=== PATIENT | male | born 1965 | race African-American/Black ===

== ENCOUNTER 2019-03-30 15:19 | Emergency (ER) | payer SELFPAY ==
--- NOTE | 2019-03-30 17:33 | RAD REPORT ---
EXAM DESCRIPTION: US - UPPER EXTREMITY VENOUS UNILATE - 03/30/2019 5:25 pm CLINICAL HISTORY: Pain;Swelling Previous IV, right sided swelling COMPARISON: <Comparisons> FINDINGS: Right upper extremity venous system was interrogated with Doppler technique. Normal flow, compressibility and augmentation was noted. There is no DVT present. IMPRESSION: No evidence of right upper extremity deep venous thrombosis.
--- NOTE | 2019-03-30 18:02 | RAD REPORT ---
EXAM DESCRIPTION: RAD - Wrist Right 3 View - 03/30/2019 5:57 pm CLINICAL HISTORY: PAIN Pain COMPARISON: <Comparisons> FINDINGS: Radiocarpal arthritic changes are present. No acute fracture or dislocation seen. Mild sof t tissue swelling is evident.
--- NOTE | 2019-03-30 18:11 | EDPHYS ---
Physician Documentation [facility] Name: Lamont Martin Age: 53 yrs Sex: Male : 1965 Arrival Date: 03/30/2019 Time: 15:24 Bed 18 Private MD: Unknown, Unknown ED Physician Yosef Gutiérrez HPI: 03/30 15:42 This 53 yrs old Black Male presents to ER via Ambulatory with complaints of Wrist Pain. rn 15:42 The patient or guardian reports pain. The complaints affect the right wrist diffusely. rn Onset: The symptoms/episode began/occurred 3 week(s) ago. Modifying factors: The symptoms are alleviated by nothing, the symptoms are aggravated by nothing. Associated signs and symptoms: Pertinent negatives: fever, numbness distally, tingling distally. The patient has not experienced similar symptoms in the past. Reports pain in right wrist that radiates to fingers, mild swelling, present for 3 weeks, no trauma, no fever, + hx of gout. Reports admitted 4 weeks ago to [facility] for syncope. Reports this pain slowly worsening since then.. Historical: - Allergies: 15:29 No Known Allergies; hj - PMHx: 15:29 Hyperlipidemia; Hypertension; Hypothyroidism; hj - PSHx: 15:29 None; hj - Immunization history:: Adult Immunizations. - Social history:: Smoking status: . - Ebola Screening: : Patient denies travel to an Ebola-affected area in the 21 days before illness onset. - Family history:: not pertinent. - Hospitalizations: : No recent hospitalization is reported. ROS: 15:42 Constitutional: Negative for fever, chills, and weight loss, Neck: Negative for injury, rn pain, and swelling, Cardiovascular: Negative for chest pain, palpitations, and edema, Respiratory: Negative for shortness of breath, cough, wheezing, and pleuritic chest pain, Abdomen/GI: Negative for abdominal pain, nausea, vomiting, diarrhea, and constipation, MS/Extremity: Negative for injury and deformity, Skin: Negative for injury, rash, and discoloration, Neuro: Negative for headache, weakness, numbness, tingling, and seizure. Exam: 15:42 Constitutional: This is a well developed, well nourished patient who is awake, alert, rn and in no acute distress. Ambulatory to room without assistance or distress Head/Face: Normocephalic, atraumatic. MS/ Extremity: Pulses equal, no cyanosis. Neurovascular intact. Painful ROM right wrist, no focal tenderness, no fluctuance, no erythema Neuro: Awake and alert, GCS 15, oriented to person, place, time, and situation. Cranial nerves II-XII grossly intact. Motor strength 5/5 in all extremities. Sensory grossly intact. Cerebellar exam normal. Normal gait. Vital Signs: 15:30 BP 180 / 92; Pulse 79; Resp 18; Temp 98.8(TE); Pulse Ox 100% on R/A; Weight 88.45 kg; hj Height 5 ft. 11 in. (180.34 cm); Pain 10/10; 17:20 BP 127 / 74; Pulse 68; Resp 17; Pulse Ox 99% on R/A; tw2 15:30 Body Mass Index 27.20 (88.45 kg, 180.34 cm) hj MDM: 15:31 Patient medically screened. rn 18:08 Differential diagnosis: tendonitis, carpal tunnel, arthritis, DVT. Data reviewed: vital rn signs, nurses notes, radiologic studies, doppler, plain films, and as a result, I will discharge patient. Counseling: I had a detailed discussion with the patient and/or guardian regarding: the historical points, exam findings, and any diagnostic results supporting the discharge/admit diagnosis, radiology results, the need for outpatient follow up, to return to the emergency department if symptoms worsen or persist or if there are any questions or concerns that arise at home. Response to treatment: the patient's symptoms have mildly improved after treatment, and as a result, I will discharge patient. Special discussion: I discussed with the patient/guardian in detail that at this point there is no indication for admission to the hospital. It is understood, however, that if the symptoms persist or worsen the patient needs to return immediately for re-evaluation. Based on the history and exam findings, there is no indication for further emergent testing or inpatient evaluation. I discussed with the patient/guardian the need to see the primary care provider for further evaluation of the symptoms. ED course: 3 week course, no acute findings on xray or doppler study, will place in cock-up wrist splint and dc with pcp f/u.. 03/30 15:42 Order name: Extremity Venous Uni Ltd rn 03/30 15:44 Order name: UPPER EXTREMITY VENOUS UNILATE; Complete Time: 17:58 EDAR 03/30 15:53 Order name: XRAY Wrist RIGHT 3 view; Complete Time: 18:09 rn 03/30 18:12 Order name: Splint - Wrist; Complete Time: 18:16 rn Administered Medications: No medications were administered Disposition: 03/30/19 18:10 Discharged to Home. Impression: Osteoarthritis, unspecified site. - Condition is Stable. - Discharge Instructions: Arthritis, Wrist Pain. - Medication Reconciliation Form, Thank You Letter, Antibiotic Education, Prescription Opioid Use, Work release form form. - Follow up: Private Physician; When: As needed; Reason: Recheck today's complaints, Re-evaluation by your physician. - Problem is an ongoing problem. - Symptoms have improved. Signatures: Dispatcher [employer] [facility] Yosef Gutiérrez MD MD rn Joaquin, Henry, RN RN hj Wise, Tara, RN RN tw2 Corrections: (The following items were deleted from the chart) 18:40 18:10 03/30/2019 18:10 Discharged to Home. Impression: Osteoarthritis, unspecified tw2 site. Condition is Stable. Forms are Work release form, Medication Reconciliation Form, Thank You Letter, Antibiotic Education, Prescription Opioid Use. Follow up: Private Physician; When: As needed; Reason: Recheck today's complaints, Re-evaluation by your physician. Problem is an ongoing problem. Symptoms have improved. rn
--- NOTE | 2019-03-30 18:11 | ER ---
Nurse's Notes [facility] Name: Lamont Martin Age: 53 yrs Sex: Male : 1965 Arrival Date: 03/30/2019 Time: 15:24 Bed 18 Private MD: Unknown, Unknown Diagnosis: Osteoarthritis, unspecified site Presentation: 03/30 15:26 Presenting complaint: Patient states: i was at the hospital and they put IV on me on my hj R hand and when i went home it started to hurt and swell; this has been going on for 3 months now;. Transition of care: patient was not received from another setting of care. Onset of symptoms was March 30, 2019. Risk Assessment: Do you want to hurt yourself or someone else? Patient reports no desire to harm self or others. Initial Sepsis Screen: Does the patient meet any 2 criteria? No. Patient's initial sepsis screen is negative. Does the patient have a suspected source of infection? No. Patient's initial sepsis screen is negative. Care prior to arrival: None. 15:26 Method Of Arrival: Ambulatory 15:26 Acuity: GAYATHRI 4 hj Historical: - Allergies: 15:29 No Known Allergies; hj - PMHx: 15:29 Hyperlipidemia; Hypertension; Hypothyroidism; hj - PSHx: 15:29 None; hj - Immunization history:: Adult Immunizations. - Social history:: Smoking status: . - Ebola Screening: : Patient denies travel to an Ebola-affected area in the 21 days before illness onset. - Family history:: not pertinent. - Hospitalizations: : No recent hospitalization is reported. Screenin:37 Abuse screen: Denies threats or abuse. Nutritional screening: No deficits noted. tw2 Tuberculosis screening: No symptoms or risk factors identified. Fall Risk None identified. Assessment: 15:38 Reassessment: provider at bedside at this time. tw2 15:40 General: Appears in no apparent distress. unkempt, Behavior is calm, cooperative, tw2 appropriate for age. Pain: Complains of pain in right hand. 15:41 Neuro: Level of Consciousness is awake, alert, obeys commands, Oriented to person, tw2 place, time, situation. Cardiovascular: Patient's skin is warm and dry. Respiratory: Airway is patent Respiratory effort is even, unlabored, Respiratory pattern is regular, symmetrical, Breath sounds are clear. GI: No signs and/or symptoms were reported involving the gastrointestinal system. : No signs and/or symptoms were reported regarding the genitourinary system. EENT: No signs and/or symptoms were reported regarding the EENT system. Derm: No signs and/or symptoms reported regarding the dermatologic system. Musculoskeletal: Range of motion: intact in all extremities. 16:25 Reassessment: Patient appears in no apparent distress at this time. No changes from tw2 previously documented assessment. Patient and/or family updated on plan of care and expected duration. Pain level reassessed. Patient is alert, oriented x 3, equal unlabored respirations, skin warm/dry/pink. US at bedside at this time. 17:00 Reassessment: US still at bedside at this time, unable to obtain vs at this time. tw2 17:14 Reassessment: xray unable to do imaging at this time as US is still at bedside tw2 performing exam. 17:20 Reassessment: Patient appears in no apparent distress at this time. No changes from tw2 previously documented assessment. Patient and/or family updated on plan of care and expected duration. Pain level reassessed. Patient is alert, oriented x 3, equal unlabored respirations, skin warm/dry/pink. 18:40 Reassessment: Patient appears in no apparent distress at this time. No changes from tw2 previously documented assessment. Patient and/or family updated on plan of care and expected duration. Pain level reassessed. Patient is alert, oriented x 3, equal unlabored respirations, skin warm/dry/pink. pt at vending machine at this time. Vital Signs: 15:30 BP 180 / 92; Pulse 79; Resp 18; Temp 98.8(TE); Pulse Ox 100% on R/A; Weight 88.45 kg; hj Height 5 ft. 11 in. (180.34 cm); Pain 10/10; 17:20 BP 127 / 74; Pulse 68; Resp 17; Pulse Ox 99% on R/A; tw2 15:30 Body Mass Index 27.20 (88.45 kg, 180.34 cm) ED Course: 15:24 Patient arrived in ED. ag5 15:24 Unknown, Unknown is Private Physician. ag5 15:29 Triage completed. 15:30 Arm band placed on left wrist. hj 15:31 Yosef Gutiérrez MD is Attending Physician. rn 15:37 Stormy Wolf, RN is Primary Nurse. tw2 15:38 Bed in low position. Call light in reach. tw2 17:16 Radiology exam delayed due to ultrasound in room. jb2 17:27 UPPER EXTREMITY VENOUS UNILATE In Process Unspecified. EDMS 17:58 XRAY Wrist RIGHT 3 view In Process Unspecified. EDMS 18:39 No provider procedures requiring assistance completed. Patient did not have IV access tw2 during this emergency room visit. Administered Medications: No medications were administered Outcome: 18:10 Discharge ordered by MD. rn 18:39 Discharged to home ambulatory, with friend. tw2 18:39 Condition: stable 18:39 Discharge instructions given to patient, friend, Instructed on discharge instructions, follow up and referral plans. Demonstrated understanding of instructions, follow-up care. 18:40 Patient left the ED. tw2 Signatures: Dispatcher [employer] EDMS Rodney Jansen jb2 Yosef Gutiérrez MD MD rn Joaquin, Henry RN MARY ALICE Stormy Wolf RN RN tw2 Sushma Wen ag5 Corrections: (The following items were deleted from the chart) 15:32 15:30 Pulse 79bpm; Resp 18bpm; Pulse Ox 100% RA; Temp 98.8F Temporal; 88.45 kg; Height hj 5 ft. 11 in.; BMI: 27.2; Pain 10/10; hj
== END 2019-03-30 18:40 | disposition home or self-care (01) ==
LOC: ER 15:19
DX: M19.031 Primary osteoarthritis, right wrist (principal); E78.5 Hyperlipidemia, unspecified; I10 Essential (primary) hypertension; E03.9 Hypothyroidism, unspecified
CPT/HCPCS: 93971